=== PATIENT | male | born 2000 | race Caucasian/White ===

== ENCOUNTER 2022-08-04 16:44 | Emergency (ER) | payer OTHER, SELFPAY ==
[2022-08-04 16:52] VITALS: BP 153/94; PULSE 76; RESP 16; TEMP 37.4; O2SAT 100
--- NOTE | 2022-08-04 16:56 | ED.MALEGU ---
HPI - Male Genitourinary General Chief complaint: Urogenital-Male Stated complaint: STD Exposed Time Seen by Provider: 08/04/22 16:56 Source: patient and RN notes reviewed History of Present Illness HPI Narrative: Patient is a 22-year-old male who presents to urgent care with concerns for gonorrhea. Patient states that a partner he had months ago called him and stated that she was positive for gonorrhea, asymptomatic. Patient states he believes he was not in contact with the patient at that time but wants to be safe. Patient denies any symptoms at this time. Denies any penile discharge/drainage, pain with urination or lower abdominal discomfort. Patient is requesting only be treated for gonorrhea. Patient aware of the plan of care. Some parts of this dictation were generated by voice recognition software and may contain typographical and/or grammatical inaccuracies. Related Data Home Medications Medication Instructions Recorded Confirmed No Home Medications 08/04/22 08/04/22 Allergies Allergy/AdvReac Type Severity Reaction Status Date / Time No Known Allergies Allergy Verified 08/04/22 17:01 Review of Systems Review of Systems: CONSTITUTIONAL: Denies fever, chills, or sweats. EYES: Denies visual changes, redness, or discharge. ENT: Denies rhinorrhea, congestion, sore throat, or otalgia. CARDIOVASCULAR: Denies chest pain, palpitations, or edema. RESPIRATORY: Denies cough or dyspnea. GASTROINTESTINAL: Denies abdominal pain, nausea, vomiting, or diarrhea. GENITOURINARY: Denies dysuria or hematuria. Reports of contact with gonorrhea SKIN: Denies rash or itching. MUSCULOSKELETAL: Denies back pain, joint pain, or myalgia. NEUROLOGIC: Denies headache, numbness, or weakness. All other systems reviewed are negative, except as documented in HPI. PMFSH Comments At the time of my signature, I reviewed and agree with the nursing past medical, surgical, social, and family history. There is no relevant family history pertinent to the patient complaint. Exam Narrative: GENERAL: This is a well-nourished, well-developed patient, in no apparent distress. HEAD: normocephalic, atraumatic. EYES: PERRL. Sclera clear/white. Vision is grossly intact. EARS: External ears normal NOSE: External nose normal with no obvious nasal discharge, nares without redness, no rhinorrhea. THROAT: Mucous membranes moist NECK: Neck supple SKIN: warm, intact with no suspicious lesions or rash, good texture and turgor. NEURO: awake, alert, and oriented to person, place and time. There were no obvious focal neurologic abnormalities. EXTREMITIES: No clubbing, cyanosis, or edema. Course Course Level of Care: Express Care Visit Vital Signs Vital signs: Vital Signs Temperature 99.4 F 08/04/22 16:52 Pulse Rate 76 08/04/22 16:52 Respiratory Rate 16 08/04/22 16:52 Blood Pressure 153/94 H 08/04/22 16:52 Pulse Oximetry 100 08/04/22 16:52 Oxygen Delivery Room Air 08/04/22 16:52 Temperature 99.4 F 08/04/22 16:52 Pulse Rate 76 08/04/22 16:52 Respiratory Rate 16 08/04/22 16:52 Blood Pressure 153/94 H 08/04/22 16:52 Pulse Oximetry 100 08/04/22 16:52 Oxygen Delivery Room Air 08/04/22 16:52 Reviewed- Patient is informed that they may have pre-hypertension or hypertension based on a blood pressure reading in the department. I recommend the patient call the primary care provider listed on their discharge instructions or a physician of their choice this week to arrange follow-up for further evaluation of possible pre-hypertension or hypertension. MDM - Male Genitourinary MDM Narrative Medical decision making narrative: Explained to the patient that he his only request treatment for gonorrhea and if he is positive for either chlamydia or Trichomonas he may seek treatment through his primary care doctor or the local health department. Advised patient to abstain from sexual intercourse for at least 14 days. I
[2022-08-04] MEDS: cefTRIAXone 1 GM, LIDOCAINE HCL 1% LOCAL INJ 2.1 ML IM (17:18)
== END 2022-08-04 17:39 | disposition home or self-care (01) ==
PROVIDERS: Emergency Provider Nurse Practitioner Family
DX: Z20.2 Contact with and (suspected) exposure to infections with a predominantly sexual mode of transmission (principal)
CPT/HCPCS: 87491; 87591; 87661; 96372; 99213; G0463; J0696